=== PATIENT | female | born 1990 | race Caucasian/White ===

== ENCOUNTER → 2017-09-14 09:35 | Outpatient (CLI) | payer MEDICAID, SELFPAY ==
--- NOTE | 2017-09-14 09:40 | HPBI_ITS ---
MAMMOGRAPHY - BILATERAL DIAGNOSTIC REASON FOR EXAM: Female, 26 years old. Left breast lump. Occasional breast tenderness. Remote left fibroadenoma resection. PERTINENT HISTORY: TECHNIQUE: Digital bilateral breast dorita (3D mammographic acquisition) in the CC and MLO projections. 2-D mediolateral oblique (MLO) and craniocaudad (CC) views of both breasts were obtained. CAD: Full Field Digital Mammography with Computer Added Detection was performed. COMPARISON: None. Baseline examination. FINDINGS: Breast Composition: There are scattered areas of fibroglandular density. Asymmetry of breast tissue were more breast tissue is seen in the retroareolar region of the left breast. This corresponds to the palpable abnormality. Correlation with ultrasound is recommended. Partial visualization of enlarged lymph node in the left axilla. No other significant abnormalities are identified. HPBI/DIAG MAMM W/CAD, BILAT IMPRESSION: Asymmetrical breast tissue in the retroareolar region of the left breast corresponding to the palpable abnormality. Correlation with ultrasound is recommended. Findings suggestive of a prominent left axillary lymph node. ASSESSMENT CATEGORY: BIRADS Category 0: Incomplete. Need additional imaging evaluation. A letter regarding these results will be sent to the patient by the facility within 30 days. Approximately 10% of breast cancers are not detected by mammography. A normal mammogram should not delay biopsy of a clinically suspicious abnormality. Electronically Signed: Moe Torres MD at 11:32 EST Tel [phone], Service support ,
--- NOTE | 2017-09-14 09:40 | US_ITS ---
STUDY: ULTRASOUND BREAST - LEFT REASON FOR EXAM: Female, 26 years old. Palpable lump left breast. TECHNIQUE: Axial and longitudinal images of the LEFT breast were performed with a high resolution ultrasound transducer. COMPARISON: Comparison is made with prior mammogram done earlier in the day. FINDINGS: LEFT Breast: The palpable abnormality corresponds to a 1.7 cm x 1.9 cm x 0.8 cm well-defined hypoechoic nodule in the superficial portion of the retroareolar region of the breast. This may represent a small fibroadenoma. Tissue diagnosis is recommended. US/Breast Limited Unilateral IMPRESSION: The palpable abnormality corresponds to a well-defined 1.7 cm x 1.9 cm x 0.8 cm hypoechoic nodule. This most likely presents a fibroadenoma. Tissue diagnosis is recommended. ASSESSMENT CATEGORY: BIRADS Category 4: Suspicious - Biopsy Should Be Considered. A letter regarding these results will be sent to the patient by the facility within 30 days. Electronically Signed: Moe Torres MD at 13:45 EST Tel [phone], Service support ,
== END ==
PROVIDERS: Visit Provider Obstetrics & Gynecology
DX: N63.20 Unspecified lump in the left breast, unspecified quadrant (principal)
CPT/HCPCS: 76642; 77062; 77066; G0279